=== PATIENT | male | born 1985 | race Caucasian/White ===

== ENCOUNTER 2021-04-24 10:42 | Inpatient (IN) | payer SELFPAY ==
[~2021-04-24 10:42] MED LIST: Magnevist 469MG/ML 20 ML VIAL ONE
[2021-04-24 12:12] LABS: #Eosinphils 0.2 thou/uL (0.0-0.7); #Lymphocytes 2.2 thou/uL (1.20-3.40); #Monocytes 0.4 thou/uL (0.11-0.59); %Basophils 0.8 % (0.0-1.0); %Lymphocytes 37.4 % (21.0-51.0); %Monocytes 6.5 % (0.0-10.0); %Neutrophils 52.3 % (42.0-75.0); Hemoglobin 16.5 g/dL (14.0-18.0); Mean Corpuscular HGB CONC 34.2 g/dL (32.0-36.0); Mean Corpuscular Volume 99.3 fL (78.0-98.0); Mean Platelet Volume 6.7 fL (7.4-10.4); Platelet Count 223 thou/uL (130-400); Red Blood Cell (RBC) Count 4.87 mill/uL (4.70-6.10); White Blood Cell (WBC) Count 5.8 thou/uL (4.8-10.8)
[2021-04-24] MEDS ORDERED: Ondansetron PF 4 MG/2 ML Vial ONE ×2 (12:21)
[2021-04-24] MEDS ORDERED: Morphine 4 MG/ML VIAL ONE (12:22)
[2021-04-24 12:31] LABS: CK (CPK) 91 U/L (30-200); CRP (Inflammatory) Less than 0.50 mg/dL (= or < 0.5)
[2021-04-24 12:32] LABS: ALT (SGPT) 79 U/L (8-55); AST (SGOT) 29 U/L (5-34); Albumin 4.1 g/dL (3.5-5.0); Alkaline Phosphatase 51 U/L (40-110); Anion Gap 9 mmol/L (10-20); BUN (Urea Nitrogen) 13 mg/dL (8.9-20.6); Bilirubin, Total 0.5 mg/dL (0.2-1.2); Calc. Creatinine Clearance 0 mL/min (70-130); Calcium 8.7 mg/dL (7.8-10.44); Carbon Dioxide 26 mmol/L (22-29); Chloride 107 mmol/L (98-107); Globulin 2.3 g/dL (2.4-3.5); Glucose 95 mg/dL (70-105); Lipase 59 U/L (8-78); Potassium 4.3 mmol/L (3.5-5.1); Protein, Total 6.4 g/dL (6.0-8.3); Sodium 138 mmol/L (136-145)
[2021-04-24 14:44] LABS: Bacteria/HPF None Seen HPF (None Seen); Bilirubin Negative (Negative); Blood, Urine 1+ (Negative); Clarity Clear (Clear); Glucose, Urine (Dipstick) Normal (Negative); Ketone, Urine Negative (Negative); Leukocyte Negative Leu/uL (Negative); Nitrite Negative (Negative); Protein, Urine (Dipstick) Negative (Neg-Trace); Specific Gravity, Urine 1.019 (1.002-1.036); Squamous Epithelial None Seen HPF (0-3); Urobilinogen Normal mg/dL (Less than 2); WBC/HPF 0-3 HPF (0-3); pH, Urine 6.5 (5.0-9.0)
[2021-04-24] MEDS ORDERED: Fentanyl 100 MCG/2 ML VIAL ONE (14:55)
[2021-04-24] MEDS ORDERED: Ondansetron PF 4 MG/2 ML Vial IVP PRN (15:40)
[2021-04-24] MEDS ORDERED: Acetaminophen 325 MG TAB PO PRN (15:40)
[2021-04-24] MEDS ORDERED: Guaifenesin DM 100-10/5 ML UDCUP PO PRN (15:40)
[2021-04-24] MEDS: HYDROcodone/Acetaminophen 5/325 mg Tablet PO PRN ×2 (19:28→23:34)
[2021-04-24 19:30] VITALS: BMI 35.3
[2021-04-24] MEDS: Sodium Chloride 0.9% 1,000 ML IV SCH (19:44)
[2021-04-24] MEDS: Nicotine 14 MG PATCH TD SCH (19:45)
[2021-04-24] MEDS: Senokot S 8.6-50 MG TAB PO PRN (23:34)
[2021-04-24] MEDS: Melatonin 3 MG TAB PO PRN (23:39)
[2021-04-25] MEDS: HYDROcodone/Acetaminophen 5/325 mg Tablet PO PRN ×4 (06:12→20:27)
[2021-04-25 06:35] LABS: #Eosinphils 0.2 thou/uL (0.0-0.7); #Lymphocytes 2.8 thou/uL (1.20-3.40); #Monocytes 0.6 thou/uL (0.11-0.59); #Neutrophils 3.4 thou/uL (1.40-6.50); %Basophils 0.3 % (0.0-1.0); %Eosinophils 3.3 % (0.0-10.0); %Lymphocytes 40.2 % (21.0-51.0); %Monocytes 8.1 % (0.0-10.0); %Neutrophils 48.3 % (42.0-75.0); Mean Corpuscular HGB CONC 33.4 g/dL (32.0-36.0); Mean Corpuscular Hemoglobin 33.2 pg (27.0-31.0); Mean Corpuscular Volume 99.6 fL (78.0-98.0); Mean Platelet Volume 6.9 fL (7.4-10.4); Platelet Count 207 thou/uL (130-400); RBC Distribution Width 12.1 % (11.5-14.5); Red Blood Cell (RBC) Count 4.81 mill/uL (4.70-6.10)
[2021-04-25 07:01] LABS: Anion Gap 13 mmol/L (10-20); BUN (Urea Nitrogen) 12 mg/dL (8.9-20.6); Calc. Creatinine Clearance 218 mL/min (70-130); Calcium 9.1 mg/dL (7.8-10.44); Carbon Dioxide 27 mmol/L (22-29); Chloride 105 mmol/L (98-107); Glucose 95 mg/dL (70-105); Sodium 140 mmol/L (136-145)
[2021-04-25] MEDS ORDERED: hydrALAZINE 20 MG/ML VIAL SLOW IVP PRN (08:16)
[2021-04-25] MEDS ORDERED: GUAIFENESIN SF SOLN 200 MG/10 ML UDCUP PO PRN (08:16)
[2021-04-25] MEDS ORDERED: Artificial Tear Sol 15 ML BOT EA EYE PRN (08:16)
[2021-04-25] MEDS ORDERED: Calcium Carbonate 500 MG ChewTAB PO PRN (08:16)
[2021-04-25] MEDS ORDERED: Hydrocerin (Eucerin) Cream 120 gm Jar TOP PRN (08:16)
[2021-04-25] MEDS ORDERED: Loratadine 10 MG TAB PO PRN (08:16)
[2021-04-25] MEDS ORDERED: Loperamide HCl 2 MG CAP PO PRN (08:16)
[2021-04-25] MEDS ORDERED: Ibuprofen 200 MG TAB PO PRN (08:16)
[2021-04-25] MEDS: Sodium Chloride 0.9% 1,000 ML IV SCH ×3 (08:42→22:47)
[2021-04-25] MEDS: Enoxaparin Sodium 40 MG/0.4 ML SYRINGE SC SCH (08:45)
[2021-04-25] MEDS: Atenolol 25 MG TAB PO SCH (08:46)
[2021-04-25] MEDS: Famotidine 20 MG TAB PO SCH ×2 (08:47→20:27)
[2021-04-25] MEDS: FLUoxetine HCl 20 MG CAP PO SCH (08:47)
[2021-04-25 12:57] LABS: SARS-CoV-2 PCR by NAA Not Detected (NotDetected)
[2021-04-25] MEDS: Nicotine 14 MG PATCH TD SCH (17:45)
[2021-04-25] MEDS: Senokot S 8.6-50 MG TAB PO PRN (20:27)
[2021-04-26] MEDS: HYDROcodone/Acetaminophen 5/325 mg Tablet PO PRN ×4 (05:42→20:28)
[2021-04-26] MEDS: Atenolol 25 MG TAB PO SCH (08:16)
[2021-04-26] MEDS: Enoxaparin Sodium 40 MG/0.4 ML SYRINGE SC SCH (08:16)
[2021-04-26] MEDS: FLUoxetine HCl 20 MG CAP PO SCH (08:17)
[2021-04-26] MEDS: Famotidine 20 MG TAB PO SCH ×2 (08:17→20:27)
[2021-04-26] MEDS: Senokot S 8.6-50 MG TAB PO PRN (08:24)
[2021-04-26] MEDS: Nicotine 14 MG PATCH TD SCH (17:37)
[2021-04-26] MEDS: Melatonin 3 MG TAB PO PRN (22:40)
[2021-04-27] MEDS: HYDROcodone/Acetaminophen 5/325 mg Tablet PO PRN ×2 (00:23→04:07)
[2021-04-27] MEDS: Atenolol 25 MG TAB PO SCH (07:08)
[2021-04-27] MEDS: Famotidine 20 MG TAB PO SCH ×2 (07:39→20:33)
[2021-04-27] MEDS: FLUoxetine HCl 20 MG CAP PO SCH (07:39)
[2021-04-27] MEDS: Enoxaparin Sodium 40 MG/0.4 ML SYRINGE SC SCH (07:39)
[2021-04-27] MEDS ORDERED: Fentanyl 250 MCG/5 ML VIAL ONE ×2 (08:29→12:04)
[2021-04-27] MEDS ORDERED: Midazolam HCl 2 mg/2 ml Vial ONE (08:29)
[2021-04-27] MEDS ORDERED: ceFAZolin Sodium (SDC) 2 GM/100 ML BAG ONE (09:01)
[2021-04-27] MEDS ORDERED: Thrombin 5000 UNITS/5 ML VIAL ONE (09:18)
[2021-04-27] MEDS ORDERED: Ondansetron PF 4 MG/2 ML Vial ONE (10:20)
[2021-04-27] MEDS ORDERED: Dexamethasone 20 MG/5 ML VIAL ONE (10:20)
[2021-04-27] MEDS ORDERED: PROPOFOL 200 MG/20 ML VIAL ONE (10:20)
[2021-04-27] MEDS ORDERED: ePHEDrine 50 MG/ML VIAL ONE (10:20)
[2021-04-27] MEDS ORDERED: PHENYLEPHRINE-NS 100 MCG/ML 10 ML SYRINGE ONE ×2 (10:20→11:33)
[2021-04-27] MEDS ORDERED: Lidocaine 1% PF 5 ML VIAL ONE (10:20)
[2021-04-27] MEDS ORDERED: Rocuronium Bromide 10 MG/ML (10ML VIAL) ONE (10:20)
[2021-04-27] MEDS ORDERED: Promethazine HCl 25 MG/ML VIAL IVPB PRN (10:57)
[2021-04-27] MEDS ORDERED: Promethazine HCl 25 MG/ML VIAL IM PRN ×2 (10:57→14:05)
[2021-04-27] MEDS ORDERED: HYDROmorphone 2 MG/ML VIAL SLOW IVP PRN (10:57)
[2021-04-27] MEDS ORDERED: Ondansetron HCl/PF 4 MG/2 ML Vial IVP PRN (10:57)
[2021-04-27] MEDS ORDERED: SUGAMMADEX SODIUM 200 MG/2 ML VIAL ONE (11:30)
[2021-04-27] MEDS ORDERED: HYDROmorphone 2 MG/ML VIAL ONE (12:20)
[2021-04-27] MEDS ORDERED: HYDROmorphone 0.5 MG/0.5 ML SYRINGE SLOW IVP PRN (12:32)
[2021-04-27] MEDS ORDERED: diphenhydrAMINE 50 MG/ML VIAL IVP PRN (14:05)
[2021-04-27] MEDS ORDERED: Naloxone HCl 0.4 mg/ml Vial IV PRN (14:05)
[2021-04-27] MEDS ORDERED: diphenhydrAMINE 25 MG CAP PO PRN (14:05)
[2021-04-27] MEDS ORDERED: diphenhydrAMINE 50 MG/ML VIAL IM PRN (14:05)
[2021-04-27] MEDS ORDERED: Ondansetron PF 4 MG/2 ML Vial IVP PRN (14:05)
[2021-04-27] MEDS ORDERED: HYDROmorphone 10 mg/100 ml CADD IVPB PRN (14:05)
[2021-04-27] MEDS ORDERED: Zolpidem Tartrate 5 MG TAB PO PRN (14:05)
[2021-04-27] MEDS ORDERED: Communication Order-Pharmacy FS PRN (14:15)
[2021-04-27] MEDS: Ketorolac Tromethamine 30 MG/ML VIAL IVP SCH (17:56)
[2021-04-27] MEDS: Nicotine 14 MG PATCH TD SCH (17:56)
[2021-04-28] MEDS: Ketorolac Tromethamine 30 MG/ML VIAL IVP SCH ×3 (00:31→11:56)
[2021-04-28] MEDS: Melatonin 3 MG TAB PO PRN (00:40)
[2021-04-28 07:45] VITALS: BP 131/84; TEMP 98.1
[2021-04-28] MEDS: FLUoxetine HCl 20 MG CAP PO SCH (08:19)
[2021-04-28] MEDS: Famotidine 20 MG TAB PO SCH (08:19)
[2021-04-28] MEDS: Atenolol 25 MG TAB PO SCH (08:19)
[2021-04-28] MEDS: Enoxaparin Sodium 40 MG/0.4 ML SYRINGE SC SCH (08:19)
[2021-04-28] MEDS ORDERED: Acetaminophen/Codeine 30-300mg Tablet PO PRN ×2 (10:48)
[2021-04-28] MEDS ORDERED: Cyclobenzaprine 10 MG TAB PO PRN (10:48)
== END 2021-04-28 14:52 | disposition home or self-care (01) | DRG 472 ==
LOC: ERS 10:42 → T4-B 15:35
PROVIDERS: ADMIT Hospitalist; ATTEND Internal Medicine
PROC: 0RG10A0 Fusion of Cervical Vertebral Joint with Interbody Fusion Device, Anterior Approach, Anterior Column, Open Approach (ICD-10-PCS; principal; 2021-04-27)
PROC: 0RB30ZZ Excision of Cervical Vertebral Disc, Open Approach (ICD-10-PCS; 2021-04-27)
DX: M48.02 Spinal stenosis, cervical region (principal); M50.022 Cervical disc disorder at C5-C6 level with myelopathy; M47.12 Other spondylosis with myelopathy, cervical region; Z20.822 Contact with and (suspected) exposure to COVID-19; F32.A Depression, unspecified; G62.9 Polyneuropathy, unspecified; I10 Essential (primary) hypertension; N31.9 Neuromuscular dysfunction of bladder, unspecified; R33.8 Other retention of urine; E66.9 Obesity, unspecified; R20.8 Other disturbances of skin sensation; Z68.35 Body mass index [BMI] 35.0-35.9, adult; Z79.899 Other long term (current) drug therapy; Z82.69 Family history of other diseases of the musculoskeletal system and connective tissue; Z28.21 Immunization not carried out because of patient refusal
CPT/HCPCS: 36415; 51702; 70553; 72125; 72128; 72131; 72141; 72157; 72158; 76000; 80048; 80053; 81003; 81015; 82550; 83690; 85025; 85652; 86140; 96374; 96375; A9579; C1713; C1776; J0690; J1100; J1170; J1650; J1885; J2250; J2270; J2405; J2704; J3010; J3490; J7050; U0003; U0005